=== PATIENT | male | born 1970 | race Caucasian/White ===

== ENCOUNTER 2021-06-11 13:33 | Day surgery (SDC) | payer OTHER ==
[2021-06-11] MEDS ORDERED: LIDOCAINE HCL 2% 100 MG/5 ML IJ ONE (16:20)
[2021-06-11] MEDS ORDERED: Depo-Medrol 40 MG/ML IM ONE (16:20)
[2021-06-11] MEDS ORDERED: Lactated Ringers 1,000 ML IV ONE (16:34)
[2021-06-11] MEDS ORDERED: DIPRIVAN 200 MG/20 ML IV ONE (16:54)
[2021-06-11] MEDS ORDERED: Xylocaine-Mpf 2% 5 Ml Vial ONE (16:56)
--- NOTE | 2021-06-11 20:36 | XRAY ---
Indication: Bilateral L4-S1 MBB. Intraoperative fluoroscopy provided for 15 seconds. Single digital spot image submitted for interpretation demonstrates posterior needle tips projecting over the expected left and right L4-S1 nerve roots. Correlate with intraoperative findings/report.
--- NOTE | 2021-06-12 08:58 | XRAY ---
15 seconds fluoroscopy time in surgery for bilateral L4-S1 MBB.
== END 2021-06-11 17:20 | disposition home or self-care (01) ==
LOC: SDC-PAIN 13:33
PROVIDERS: ATTEND Psychiatry & Neurology Pain Medicine
DX: M47.816 Spondylosis without myelopathy or radiculopathy, lumbar region (principal)
CPT/HCPCS: 64493; 64494; 72020; 77002; J1030; J2704

== ENCOUNTER → 2021-07-02 | Day surgery (SDC) | payer OTHER ==
[~2021-07-02] MED LIST: BUPIVACAINE 0.5% VIAL IJ ONE; DIPRIVAN 200 MG/20 ML IV ONE; Depo-Medrol 40 MG/ML IM ONE; Lactated Ringers 1,000 ML IV ONE
--- NOTE | 2021-07-02 19:59 | XRAY ---
Indication: Bilateral SI joint injection. Intraoperative fluoroscopy provided for 22 seconds. 4 digital spot images submitted for interpretation demonstrates posterior needle tips projecting over the inferior left and right SI joints. Correlate with intraoperative findings/report.
--- NOTE | 2021-07-03 09:41 | XRAY ---
22 seconds of fluoroscopy was used in surgery for bilateral SI injections.
== END ==
LOC: SDC-PAIN 14:06
PROVIDERS: ATTEND Psychiatry & Neurology Pain Medicine
DX: M46.1 Sacroiliitis, not elsewhere classified (principal); Z79.899 Other long term (current) drug therapy
CPT/HCPCS: 27096; 72202; 77002; G0260; J1030; J2704

== ENCOUNTER 2021-07-30 08:40 | Day surgery (SDC) | payer OTHER ==
[2021-07-30] MEDS ORDERED: Depo-Medrol 40 MG/ML IM ONE (08:41)
[2021-07-30] MEDS ORDERED: BUPIVACAINE 0.5% VIAL IJ ONE (08:41)
[2021-07-30] MEDS ORDERED: Lactated Ringers 1,000 ML IV ONE (10:32)
[2021-07-30] MEDS ORDERED: DIPRIVAN 200 MG/20 ML IV ONE (10:38)
--- NOTE | 2021-07-30 11:40 | XRAY ---
Indication: Bilateral L4-S1 MBB. Intraoperative fluoroscopy provided for 8 seconds. Single digital spot image submitted for interpretation demonstrates posterior needle tips projecting over the left and right L4-S1 nerve roots. Correlate with intraoperative findings/report.
--- NOTE | 2021-07-30 11:42 | XRAY ---
8 seconds fluoroscopy time in surgery for bilateral L4-S1 MBB.
== END 2021-07-30 10:50 | disposition home or self-care (01) ==
LOC: SDC-PAIN 08:40
PROVIDERS: ATTEND Psychiatry & Neurology Pain Medicine
DX: M47.816 Spondylosis without myelopathy or radiculopathy, lumbar region (principal); Z79.899 Other long term (current) drug therapy
CPT/HCPCS: 64493; 64494; 72020; 77002; J1030; J2704

== ENCOUNTER 2021-08-20 07:28 | Day surgery (SDC) | payer OTHER ==
[2021-08-20] MEDS ORDERED: Xylocaine 1% Vial 30 ML PF IJ ONE (07:29)
[2021-08-20] MEDS ORDERED: Marcaine Mpf 0.5% Vial 30 Ml IJ ONE (07:29)
[2021-08-20] MEDS ORDERED: Depo-Medrol 40 MG/ML IM ONE (07:29)
[2021-08-20] MEDS ORDERED: DIPRIVAN 200 MG/20 ML IV ONE (09:11)
[2021-08-20] MEDS ORDERED: Lactated Ringers 1,000 ML IV ONE (09:30)
--- NOTE | 2021-08-20 09:53 | XRAY ---
Indication: Right L4-S1 RFA. Intraoperative fluoroscopy provided for 19 seconds. 3 digital spot image submitted for interpretation demonstrates posterior needle tips projecting over the expected right L4-S1 nerve roots. Correlate with intraoperative findings/report.
--- NOTE | 2021-08-20 11:35 | XRAY ---
19 seconds of fluoroscopy was used in surgery for a right L4-S1 RFA.
== END 2021-08-20 09:37 | disposition home or self-care (01) ==
LOC: SDC-PAIN 07:28
PROVIDERS: ATTEND Psychiatry & Neurology Pain Medicine
DX: M47.816 Spondylosis without myelopathy or radiculopathy, lumbar region (principal)
CPT/HCPCS: 64493; 64494; 72100; 77002; J1030; J2001; J2704

== ENCOUNTER 2021-08-21 06:35 | Day surgery (SDC) | payer OTHER ==
[2021-08-21] MEDS ORDERED: Depo-Medrol 40 MG/ML IM ONE (06:36)
[2021-08-21] MEDS ORDERED: Marcaine Mpf 0.5% Vial 30 Ml IJ ONE (06:36)
[2021-08-21] MEDS ORDERED: Xylocaine 1% Vial 30 ML PF IJ ONE (06:36)
[2021-08-21] MEDS ORDERED: Lactated Ringers 1,000 ML IV ONE ×2 (07:22→09:00)
[2021-08-21] MEDS ORDERED: DIPRIVAN 200 MG/20 ML IV ONE (08:13)
--- NOTE | 2021-08-21 10:10 | XRAY ---
Indication: Left L4-S1 RFA. Intraoperative fluoroscopy provided for 16 seconds. 3 digital spot image submitted for interpretation demonstrates posterior needle tips projecting over the expected left L4-S1 nerve roots. Correlate with intraoperative findings/report.
--- NOTE | 2021-08-21 11:25 | XRAY ---
16 seconds of fluoroscopy was used in surgery for a left L4-S1 RFA.
== END 2021-08-21 08:39 | disposition home or self-care (01) ==
LOC: SDC-PAIN 06:35
PROVIDERS: ATTEND Psychiatry & Neurology Pain Medicine
DX: M47.816 Spondylosis without myelopathy or radiculopathy, lumbar region (principal)
CPT/HCPCS: 64635; 64636; 72100; 77002; J1030; J2001; J2704

== ENCOUNTER 2021-10-08 13:31 | Day surgery (SDC) | payer OTHER ==
[2021-10-08] MEDS ORDERED: Marcaine Mpf 0.5% Vial 30 Ml IJ ONE (13:32)
[2021-10-08] MEDS ORDERED: Depo-Medrol 40 MG/ML IM ONE (13:32)
[2021-10-08] MEDS ORDERED: Lactated Ringers 1,000 ML IV ONE (15:25)
[2021-10-08] MEDS ORDERED: DIPRIVAN 200 MG/20 ML IV ONE (15:37)
--- NOTE | 2021-10-08 17:13 | XRAY ---
Indication: Bilateral SI joint injection. Intraoperative fluoroscopy provided for 18 seconds. 4 digital spot images submitted for interpretation demonstrate posterior needle tip projecting over the inferior left and right SI joint. Correlate with intraoperative findings/report.
--- NOTE | 2021-10-08 17:16 | XRAY ---
18 seconds of fluoroscopy was used in surgery for bilateral SI joint injections.
== END 2021-10-08 16:10 | disposition home or self-care (01) ==
LOC: SDC-PAIN 13:31
PROVIDERS: ATTEND Psychiatry & Neurology Pain Medicine
DX: M46.1 Sacroiliitis, not elsewhere classified (principal); Z79.899 Other long term (current) drug therapy
CPT/HCPCS: 27096; 72202; 77002; G0260; J1030; J2704